=== PATIENT | female | born 1990 | race African-American/Black ===

== ENCOUNTER 2016-12-14 12:34 | Emergency (ER) | payer OTHER ==
[~2016-12-14] VITALS: Wt 115.0 kg
[~2016-12-14 12:34] MED LIST: AUG875 PO; IBUP-1542 PO; PREN-46 PO
[2016-12-14] MEDS ORDERED: ONDANSETRON (ODT) 4 MG TAB ODT STA (13:52)
[2016-12-14] MEDS ORDERED: MECLIZINE 12.5 MG TAB PO ONE (14:00)
[2016-12-14] MEDS ORDERED: MECL-77 PO (14:04)
[2016-12-14] MEDS ORDERED: ONDA8TAB14 PO (14:04)
--- NOTE | 2016-12-14 14:06 | ERD ---
ER Documentation Chief Complaint Date/Time DATE: 12/14/16 TIME: 14:05 Chief Complaint DIZZINESS X 3 DAYS HX OF VERTIGO HPI This 18-year-old female complains of a spinning type dizziness over the last 3 days. Is worse with head movement. Feels nauseous. She has a history of vertigo and it feels similar. She did have a URI last week but that resolved. She denies any visual changes, fevers, bowel or bladder incontinence, weakness. ROS All systems reviewed and are negative except as per history of present illness. Medications Home Meds Active Scripts Ondansetron (Ondansetron Odt) 8 Mg Tab.rapdis, 8 MG PO Q6H Y for NAUSEA AND/OR VOMITING, #10 TAB Prov:WALESKA PARR MD 12/14/16 Meclizine Hcl* (Meclizine Hcl*) 25 Mg Tablet, 25 MG PO Q8H Y for DIZZINESS, #15 TAB Prov:WALESKA PARR MD 12/14/16 Ibuprofen* (Motrin*) 600 Mg Tab, 600 MG PO Q6, #20 TAB Prov:BERKLEY OCHOA PA-C 03/03/15 Amoxicillin-Clavulanate K* (Augmentin*) 875 Mg Tab, 875 MG PO BID for 7 Days, TAB Prov:BERKLEY OCHOA PA-C 03/03/15 Reported Medications Vit #108/Iron/Fa ( ONE TABLET) 1 Each Tablet, 1 EACH PO DAILY 09/14/13 Allergies Allergies: Coded Allergies: orange juice (Verified Allergy, Intermediate, ITCHING, 09/16/13) pineapple (Verified Allergy, Intermediate, ITCHING THROAT, 09/16/13) Uncoded Allergies: NKA (Allergy, 08/03/13) PMhx/Soc Medical and Surgical Hx: pt denies Medical Hx, pt denies Surgical Hx Hx Alcohol Use: No Hx Substance Use: No Hx Tobacco Use: No Physical Exam Vitals Vital Signs Date Time Temp Pulse Resp B/P Pulse Ox O2 Delivery O2 Flow Rate FiO2 12/14/16 12:51 98.0 94 18 166/78 99 Physical Exam Const: [] Alert, [id number] per Head: Atraumatic Eyes: Normal Conjunctiva ENT: Normal External Ears, Nose and Mouth. TMs normal. Neck: Full range of motion..~ No meningismus. Resp: Clear to auscultation bilaterally Cardio: Regular rate and rhythm, no murmurs Abd: Soft, non tender, non distended. Normal bowel sounds Skin: No petechiae or rashes Back: No midline or flank tenderness Ext: No cyanosis, or edema Neur: Awake and alert. Positive mild reproducible vertigo to the right. No appreciable focal neurologic deficits. Normal gait. Psych: Normal Mood and Affect Results 24 hrs Current Medications Medications (Trade) Dose Ordered Sig/Alexandru Route PRN Reason Start Time Stop Time Status Last Admin Dose Admin Ondansetron HCl (Zofran Odt) 8 mg ONCE STAT ODT 12/14/16 13:52 12/14/16 13:53 DC Meclizine HCl (Antivert) 25 mg ONCE ONCE PO 12/14/16 14:00 12/14/16 14:01 DC Procedures/MDM HCG is negative. Patient was given Zofran 8 mg by mouth and Antivert 25 mg by mouth. Patient signs and symptoms of positional vertigo. Signs or symptoms do not suggest central vertigo, meningitis, neurologic deficit. She will treated with Zofran and Antivert for observation at home. The patient was stable with no new complaints during the ER course. Clinically, there is no current evidence to suggest meningitis, sepsis, acute abdomen, pneumonia, acute coronary syndrome, pulmonary embolism, or any other emergent condition appearing to require further evaluation or hospitalization. The patient should certainly return for any new or worsening symptoms per the aftercare instructions. They should otherwise follow-up with her primary care doctor for reevaluation this week. Departure Diagnosis: Primary Impression: Vertigo Condition: Stable Patient Instructions: Vertigo, Unspecified Additional Instructions: Likely positional vertigo should resolve the next few days. Recheck for new or worsening symptoms with primary care doctor. WALESKA PARR MD Dec 14, 2016 14:06
== END 2016-12-14 14:30 | disposition home or self-care (01) ==
LOC: FTE 12:34
DX: R42 Dizziness and giddiness (principal)
CPT/HCPCS: Z7502; Z7610; 99283

== ENCOUNTER 2018-04-05 16:07 | Emergency (ER) | END 2018-04-05 20:27 | disposition home or self-care (01) ==

== ENCOUNTER 2018-06-16 11:34 | Emergency (ER) | END 2018-06-16 13:23 | disposition home or self-care (01) ==

== ENCOUNTER 2019-04-18 14:13 | Emergency (ER) | payer OTHER ==
[~2019-04-18] VITALS: Wt 126.5 kg
[~2019-04-18 14:13] MED LIST changes: +AZIT250T PO; +BUTA1CAP38 PO; +LORA-441 PO; +MECL-77 PO; +ONDA4TAB14 PO; +ONDA8TAB14 PO; +PROM6.2515 PO
[2019-04-18] MEDS ORDERED: ONDANSETRON (ODT) 4 MG TAB ODT STA (14:58)
[2019-04-18] MEDS ORDERED: LORAZEPAM 1 MG TAB PO ONE ×2 (15:00→16:30)
[2019-04-18] MEDS ORDERED: SOD CHLORIDE 0.9% 500 ML IV ONE (15:00)
--- NOTE | 2019-04-18 15:03 | ERD ---
ER Documentation Chief Complaint Chief Complaint on/off feeling jittery since thurs; denies any pain; not in distress HPI 28-year-old female, previously healthy, presents the emergency department, complaining of palpitations, dizziness, bilateral finger numbness and general anxiety after taking 2 pills of caffeine and one Excedrin for a migraine last night. The patient denies fever, chills, no distal weakness, no chest pain, no shortness of breath. The patient believes that her symptoms are caused by anxiety. ROS All systems reviewed and are negative except as per history of present illness. Medications Home Meds Active Scripts Gjwxsjqwai-Jsfzvlryotvuw-Frlisqol* (Fioricet*) 50-300-40 Mg Capsule, 1 CAP PO BID, #10 CAP Prov:YESSENIA MALCOLM MD 04/18/19 Lorazepam* (Ativan*) 0.5 Mg Tablet, 0.5 MG PO Q8H PRN for ANXIETY, #10 TAB Prov:YESSENIA MALCOLM MD 04/18/19 Azithromycin* (Zithromax*) 250 Mg Tablet, 250 MG PO .JESSECK DIRECTED, #6 TAB TAKE 500 MG (2 TABS) THE FIRST DAY THEN 250 MG (1 TAB) DAYS 2-5 Prov:LIZBET ALONZO PA-C 06/16/18 Ondansetron (Ondansetron Odt) 4 Mg Tab.rapdis, 4 MG PO Q6H PRN for NAUSEA AND/OR VOMITING, #10 TAB Prov:LIZBET ALONZO PA-C 06/16/18 Promethazine Hcl* (Promethazine Hcl* Syrup) 6.25 Mg/5 Ml Syrup, 6.25 MG PO Q6H PRN for COUGH, #100 ML Prov:LIZBET ALONZO PA-C 06/16/18 Meclizine Hcl* (Meclizine Hcl*) 25 Mg Tablet, 25 MG PO Q8H PRN for DIZZINESS, #30 TAB Prov:RAFAEL MENDEZ PA-C 04/05/18 Ondansetron (Ondansetron Odt) 4 Mg Tab.rapdis, 4 MG PO Q6H PRN for NAUSEA AND/OR VOMITING, #20 TAB Prov:RAFAEL MENDEZ PA-C 04/05/18 Ondansetron (Ondansetron Odt) 8 Mg Tab.rapdis, 8 MG PO Q6H PRN for NAUSEA AND/OR VOMITING, #10 TAB Prov:WALESKA PARR MD 12/14/16 Meclizine Hcl* (Meclizine Hcl*) 25 Mg Tablet, 25 MG PO Q8H PRN for DIZZINESS, #15 TAB Prov:WALESKA PARR MD 12/14/16 Ibuprofen* (Motrin*) 600 Mg Tab, 600 MG PO Q6, #20 TAB Prov:BERKLEY OCHOA PA-C 03/03/15 Amoxicillin-Clavulanate K* (Augmentin*) 875 Mg Tab, 875 MG PO BID for 7 Days, TAB Prov:BERKLEY OCHOA PA-C 03/03/15 Reported Medications Vit #108/Iron/Fa ( ONE TABLET) 1 Each Tablet, 1 EACH PO DAILY 09/14/13 Allergies Allergies: Coded Allergies: orange juice (Verified Allergy, Intermediate, ITCHING, 06/16/18) pineapple (Verified Allergy, Intermediate, ITCHING THROAT, 06/16/18) PMhx/Soc History of Surgery: No Anesthesia Reaction: No Hx Neurological Disorder: No Hx Respiratory Disorders: No Hx Cardiac Disorders: No Hx Psychiatric Problems: No Hx Miscellaneous Medical Probl: Yes (migraine) Hx Alcohol Use: No Hx Substance Use: No Hx Tobacco Use: No Smoking Status: Never smoker Physical Exam Vitals Vital Signs Date Temp Pulse Resp B/P (MAP) Pulse Ox O2 O2 Flow FiO2 Time Delivery Rate 04/18/19 98.4 115 24 129/66 100 18:39 (87) 04/18/19 98.8 134 20 151/73 100 14:20 (99) Physical Exam Const: No acute distress Head: Atraumatic Eyes: Normal Conjunctiva ENT: Normal External Ears, Nose and Mouth. Neck: Full range of motion. No meningismus. Resp: Clear to auscultation bilaterally Cardio: Regular rate and rhythm, no murmurs Abd: Soft, non tender, non distended. Normal bowel sounds Skin: No petechiae or rashes Back: No midline or flank tenderness Ext: No cyanosis, or edema Neur: Awake and alert Psych: Normal Mood and Affect Result Diagram: 04/18/19 1505 04/18/19 1505 Results 24 hrs Laboratory Tests Test 04/18/19 15:05 04/18/19 15:09 04/18/19 15:11 04/18/19 15:51 White Blood Count 10.1 10^3/ul Red Blood Count 4.20 10^6/ul Hemoglobin 13.0 g/dl Hematocrit 38.4 % Mean Corpuscular 91.4 fl Volume Mean Corpuscular 31.0 pg Hemoglobin Mean Corpuscular 33.9 g/dl Hemoglobin Concent Red Cell 12.2 % Distribution Width Platelet Count 418 10^3/UL Mean Platelet Volume 10.5 fl Immature 0.500 % Granulocytes % Neutrophils % 55.7 % Lymphocytes % 36.1 % Monocytes % 4.7 % Eosinophils % 2.5 % Basophils % 0.5 % Nucleated Red Blood 0.0 /100WBC Cells % Immature 0.050 10^3/ul Granulocytes # Neutrophils # 5.6 10^3/ul Lymphocytes # 3.7 10^3/ul Monocytes # 0.5 10^3/ul Eosinophils # 0.3 10^3/ul Basophils # 0.1 10^3/ul Nucleated Red Blood 0.0 10^3/ul Cells # Sodium Level 139 mmol/L Potassium Level 3.8 mmol/L Chloride Level 106 mmol/L Carbon Dioxide Level 21 mmol/L Anion Gap 12 Blood Urea Nitrogen 9 mg/dl Creatinine 0.95 mg/dl Est Glomerular > 60 mL/min Filtrat Rate mL/min Glucose Level 95 mg/dl Calcium Level 10.0 mg/dl Bedside Urine pH 5.5 (LAB) Bedside Urine 2+ Protein (LAB) Bedside Urine Negative Glucose (UA) Bedside Urine Trace Ketones (LAB) Bedside Urine Blood 2+ Bedside Urine Negative Nitrite (LAB) Bedside Urine Negative Leukocyte Esterase (L D-Dimer 496.91 ng/ml D-Dimer Comment POC Beta HCG, NEGATIVE Qualitative Thyroid Stimulating 1.250 MIU/L Hormone (TSH) Current Medications Medications Dose Sig/Alexandru Start Time Status Last (Trade) Ordered Route PRN Stop Time Admin Dose Reason Admin Sodium 500 ml @ Q1H ONCE 04/18/19 DC 04/18/19 Chloride 500 mls/hr IV 15:00 04/18/19 15:13 15:59 Lorazepam 1 mg ONCE ONCE 04/18/19 DC 04/18/19 (Ativan) PO 15:00 04/18/19 15:11 15:02 Ondansetron 4 mg ONCE STAT 04/18/19 DC 04/18/19 HCl (Zofran ODT 14:58 04/18/19 15:11 Odt) 15:02 Lorazepam 1 mg ONCE ONCE 04/18/19 DC 04/18/19 (Ativan) PO 16:30 04/18/19 16:26 16:31 EKG read by me: Rate/Rhythm: Regular rate and rhythm at a rate of 101 Intervals: Normal No acute ST changes. Nonspecific T wave changes in diffuse leads. Impression: No evidence of acute ischemia or arrhythmia Procedures/MDM Vital signs stable, Physical exam unremarkable, neurovascular exam intact. Differential diagnosis include but not limited to: Depression, anxiety, migraine, thyroid disease, electrolyte imbalance. Low suspicion for acute coronary event, aortic dissection, CVA. Pertinent Data: 12 Lead ECG: Sinus rhythm, no acute ST changes, normal intervals Physical examination and clinical presentation consistent most likely with anxiety. During the ED course the patient remained stable, no new complaints. The patient received treatment with lorazepam presenting overall improvement of the symptoms. Treatment options, results and clinical impression discussed with patient who agrees with management. The patient is stable to be treated outpatient and will be discharged home with a Rx for lorazepam, some side effects of prescribed medications (headache, rash, nausea, vomiting, diarrhea, drowsiness, habituation, bleeding, hypertension, interactions with other medications) were reviewed. The patient was instructed to follow up with the primary care provider in the next 48h. If symptoms persist, worsen or new symptoms develop, then patient should return to the ED immediately. Instructions explained and given directly by me to the patient with acknowledgment and demonstrated understanding. Disclaimer: Inadvertent spelling and grammatical errors are likely due to EHR/dictation software use and do not reflect on the overall quality of patient care. Also, please note that the electronic time recorded on this note does not necessarily reflect the actual time of the patient encounter. Departure Diagnosis: Primary Impression: Anxiety Additional Impression: Migraine Condition: Stable Additional Instructions: Thank you very much for allowing us to participate in your care. Your health and safety is our top priority at [facility]. The evaluation in the emergency department has been done to rule out an acute emergency. Chronic, [id number] conditions may have not been evaluated; therefore, you need to follow up with a primary care provider in the next 48h. If symptoms persist, worsen or new symptoms develop, then patient should return to the ED immediately. Call your primary care doctor TOMORROW for an appointment during the next 2-4 days and bring all the information provided. Have prescriptions filled and follow precisely the directions on the label. If the symptoms get worse and your provider is unavailable, return to the Emergency Department immediately. YESSENIA MALCOLM MD Apr 18, 2019 15:03
[2019-04-18 18:39] VITALS: BP 129/66; PULSE 115; RESP 24
== END 2019-04-18 19:22 | disposition home or self-care (01) ==
LOC: FTE 14:13
DX: F41.9 Anxiety disorder, unspecified (principal); G43.909 Migraine, unspecified, not intractable, without status migrainosus
CPT/HCPCS: 71046; 80048; 81003; 81025; 84443; 85025; 85378; 93005; J7040; Z7502; Z7610